=== PATIENT | female | born 1960 ===

== ENCOUNTER 2017-09-04 12:19 | Outpatient (CLI) | payer OTHER ==
--- NOTE | 2017-09-04 16:16 | XRay Report ---
XRAY BILATERAL KNEE FOUR VIEWS EACH: 09/04/17 12:19:00 CLINICAL: Knee pain. FINDINGS: Right: Moderate osteopenia. No fracture or dislocation. The medial and lateral joint spaces are normal. Mild patellofemoral joint osteoarthritis. A quadriceps insertion enthesophyte. No joint effusion. Vascular calcifications. Left: Moderate osteopenia. No fracture or dislocation. Medial and lateral joint spaces are normal. Mild patellofemoral joint osteoarthritis. The quadriceps insertion enthesophyte. No joint effusion. Normal soft tissues. IMPRESSION: Bilateral patellofemoral joint osteoarthritis and bilateral quadriceps enthesopathy.
== END 2017-09-04 12:20 | disposition home or self-care (01) ==
LOC: SPVIMAG 12:19
PROVIDERS: ATTEND Orthopaedic Surgery
DX: M17.0 Bilateral primary osteoarthritis of knee (principal); M85.861 Other specified disorders of bone density and structure, right lower leg; M85.862 Other specified disorders of bone density and structure, left lower leg; M76.9 Unspecified enthesopathy, lower limb, excluding foot